=== PATIENT | male | born 2000 | race African-American/Black ===

== ENCOUNTER 2023-09-15 10:29 | Emergency (ER) | payer BC, SELFPAY ==
[2023-09-15 10:46] VITALS: BP 134/78; PULSE 82; RESP 18; TEMP 37.3; O2SAT 99
--- NOTE | 2023-09-15 11:13 | ED.GENADULT ---
HPI - General Adult General Chief complaint: Upper Respiratory Infection Stated complaint: Congestion,Sore Throat,Cough Time Seen by Provider: 09/15/23 11:13 History of Present Illness HPI narrative: 22-year-old male patient arrives to clinic today with reports of runny nose, cough, sore throat without fevers, chills, body aches. Patient denies nausea, vomiting, diarrhea and abdominal pain. Patient states his current symptoms started yesterday. patient reports a history of asthma but currently does not have any chest tightness or wheezing and has not needed his inhaler for at least 2 months. Related Data Home Medications Medication Instructions Recorded Confirmed No Home Medications 09/15/23 09/15/23 Allergies Allergy/AdvReac Type Severity Reaction Status Date / Time Penicillins Allergy Hives Verified 09/15/23 11:03 Review of Systems Review of Systems: CONSTITUTIONAL: Denies fever, chills, or sweats. EYES: Denies visual changes, redness, or discharge. ENT: positive rhinorrhea, denies congestion, positive sore throat, and denies otalgia. CARDIOVASCULAR: Denies chest pain, palpitations, or edema. RESPIRATORY: positive cough that is mostly nonproductive when he does cough something up it is clear phlegm, denies dyspnea. GASTROINTESTINAL: Denies abdominal pain, nausea, vomiting, or diarrhea. GENITOURINARY: Denies dysuria or hematuria. SKIN: Denies rash or itching. MUSCULOSKELETAL: Denies back pain, joint pain, or myalgia. NEUROLOGIC: Denies headache, numbness, or weakness. PSYCHIATRIC: Denies anxiety or depression. Exam Narrative: GENERAL: Well-appearing, well-nourished, and in no acute distress. HEAD: Normocephalic, atraumatic. EYES: PERRLA and EOMI. ENT: Nares clear, no rhinorrhea or epistaxis. Mucous membranes moist. posterior oropharynx without erythema, edema or exudate. bilateral TMs are clear no erythema or foreign bodies the canal. NECK: Supple. No lymphadenopathy CHEST: Clear to auscultation. No respiratory distress. HEART: Regular rate and rhythm. No murmur heard. Normal peripheral pulses. ABDOMEN: Soft, nontender, nondistended, normal active bowel sounds. EXTREMITIES: Normal range of motion. No edema. SKIN: Warm, dry, no rash. NEURO: No focal deficits. Alert and oriented x3. Course Course Level of Care: Express Care Visit Vital Signs Vital signs: Vital Signs Temperature 37.3 C 09/15/23 10:46 Pulse Rate 82 09/15/23 10:46 Respiratory Rate 18 09/15/23 10:46 Blood Pressure 134/78 09/15/23 10:46 Pulse Oximetry 99 09/15/23 10:46 Oxygen Delivery Room Air 09/15/23 10:46 Temperature 37.3 C 09/15/23 10:46 Pulse Rate 82 09/15/23 10:46 Respiratory Rate 18 09/15/23 10:46 Blood Pressure 134/78 09/15/23 10:46 Pulse Oximetry 99 09/15/23 10:46 Oxygen Delivery Room Air 09/15/23 10:46 vital signs have been reviewed. Medical Decision Making MDM Narrative Medical decision making narrative: due to patient's current symptoms, physical exam, and negative strep test will send patient home with supportive measures and education on symptom management. discussed with patient if symptoms persist and follow-up with primary care provider or try [id number] antihistamines such as Zyrtec for possible seasonal allergy symptoms. Differential Diagnosis Differential Diagnosis: Allergic rhinitis, chronic sinusitis, tonsillitis, acute sinusitis, infectious mononucleosis, seasonal influenza, pertussis, diphtheria, meningococcal disease, viral syndrome, viral bronchitis, RSV, COVID-19 Vital Signs Vital Signs: Vital Signs Temperature 37.3 C 09/15/23 10:46 Pulse Rate 82 09/15/23 10:46 Respiratory Rate 18 09/15/23 10:46 Blood Pressure 134/78 09/15/23 10:46 Pulse Oximetry 99 09/15/23 10:46 Oxygen Delivery Room Air 09/15/23 10:46 Temperature 37.3 C 09/15/23 10:46 Pulse Rate 82 09/15/23 10:46 Respiratory Rate 18 09/15/23 10:46
== END 2023-09-15 11:35 | disposition home or self-care (01) ==
PROVIDERS: Emergency Provider Nurse Practitioner Family
DX: R05.9 Cough, unspecified (principal); J02.9 Acute pharyngitis, unspecified
CPT/HCPCS: 87081; 87880; 99203; G0463

== ENCOUNTER 2024-05-23 10:56 | Emergency (ER) | payer OTHER, SELFPAY ==
--- NOTE | ~2024-05-23 | XR_ITS ---
EXAMINATION: XR chest 2V DATE: 05/23/2024 11:24 INDICATION: Productive cough. Shortness of breath. TECHNIQUE: Frontal and lateral views of the chest were obtained. COMPARISON: None. FINDINGS: There are airspace opacities in right upper lobe. No pleural effusion or pneumothorax. The heart size is normal. IMPRESSION: 1. Airspace opacities in right upper lobe, consistent with pneumonia. Reviewed, dictated and finalized at location A. [facility] [employer]
[2024-05-23 11:07] VITALS: BP 135/88; PULSE 88; RESP 18; TEMP 36.7; O2SAT 99
--- NOTE | 2024-05-23 11:08 | ED_ITS ---
HPI - URI/Sore Throat General Chief Complaint: Upper Respiratory Infection Stated Complaint: Cough,Shortness of Breath, Runny Nose, Drainage Time Seen by Provider: 05/23/24 11:04 Source: patient Mode of arrival: ambulatory Limitations: no limitations History of Present Illness HPI Narrative: Juan Carlos is a 24-year-old male patient presenting to the clinic today with complaints of cough, shortness of breath, and nasal congestion/drainage. He reports he has had a productive cough with brown/green phlegm for the past 3 months. Last week he developed sore throat, body aches, chills, and headache however that has resolved. History of asthma. MD elicited complaint: cough, rhinorrhea, nasal congestion and other (Shortness of breath,) Related Data Home Medications Medication Instructions Recorded Confirmed albuterol 90 mcg/actuation aerosol 1 mcg inhalation DIRECTED 05/23/24 05/23/24 inhaler Allergies Allergy/AdvReac Type Severity Reaction Status Date / Time Penicillins Allergy Hives Verified 05/23/24 11:10 Review of Systems Review of Systems: Pertinent positives per HPI. Patient denies any fever, chills, rash, headache, visual changes, dizziness, chest pain, palpitations, nausea, vomiting, diarrhea, constipation, abdominal pain, or any urinary issues. PMFSH Comments At the time of my signature, I reviewed and agree with the nursing past medical, surgical, social, and family history. There is no relevant family history pertinent to the patient complaint. Exam Narrative: General: Well-developed, well nourished, in no apparent distress Head: Normocephalic, atraumatic Eyes: Pupils equally round and reactive to light bilaterally, EOM intact, sclera and conjunctive clear, no discharge, lids normal Ears: TMs intact and clear, ear canals clear, no drainage, grossly hearing normal. Nose: Nares patent, green nasal discharge, moderate inflammation, no sinus tenderness. Mouth: Oral pharynx without lesions or masses, good dentition, MMM. Neck: Supple, trachea midline, no enlargement of anterior or posterior cervical nodes, no thyroid masses or goiter palpable. Cardio: Regular rate and rhythm, s1 and s2 normal, no murmur appreciated. Resp: Diminished in the bases, no rhonchi, rales, wheezing or rubs Course Course Emergency Course: Portions of this record may have been created with voice recognition software. Level of Care: Express Care Visit Vital Signs Vital signs: Vital Signs Temperature 36.7 C 05/23/24 11:07 Pulse Rate 88 05/23/24 11:07 Respiratory Rate 18 05/23/24 11:07 Blood Pressure 135/88 05/23/24 11:07 Pulse Oximetry 99 05/23/24 11:07 Oxygen Delivery Room Air 05/23/24 11:07 Temperature 36.7 C 05/23/24 11:07 Pulse Rate 88 05/23/24 11:07 Respiratory Rate 18 05/23/24 11:07 Blood Pressure 135/88 05/23/24 11:07 Pulse Oximetry 99 05/23/24 11:07 Oxygen Delivery Room Air 05/23/24 11:07 Vital signs reviewed MDM - URI/Sore Throat MDM Narrative Medical decision making narrative: At the time of visit patient is resting comfortably on the exam table. Patient appears to be nontoxic. Diagnostics: Chest x-ray shows right upper lobe pneumonia. Plan: Patient has right upper lobe pneumonia. Prescription for Levaquin and albuterol inhaler was sent to the pharmacy. Supportive measures were discussed with the patient and they voiced understanding discharge instructions and agrees to treatment plan. Return precautions reviewed Differential Diagnosis Differential diagnosis: Likely upper respiratory infection, otitis media, sinusitis, viral infection, bronchitis, influenza, pharyngitis and other (COVID) Imaging Data Radiologist's impression: ITS Impressions Chest X-Ray 05/23/24 11:32 IMPRESSION: 1. Airspace opacities in right upper lobe, consistent with pneumonia. Discharge Plan Discharge Clinical Impression: Right upper lobe pneumonia Qualifiers: Pneumonia type: due to unspecified organism Qualified Code(s): J18.9 - Pneumonia, unspecified organism Patient Disposition: Home, Self-Care Condition: Stable Instructions: Antibiotic Form, Pneumonia (ED) Additional Instructions: Chest x-ray shows right upper lobe pneumonia. Take prescription medications only as prescribed-Levaquin and albuterol inhaler Increase fluids and stay well hydrated Tylenol/motrin for pain/fever Flonase and OTC antihistamines as directed Vicks vapor rub to open sinuses Sinus rinses for congestion Cepacol spray, cough drops, throat lozenges, warm tea with honey/lemon, gargle salt water to soothe throat BRAT diet for diarrhea Clear liquids x 24 hours then advance as tolerated for nausea/vomiting Go to the ED if you develop a worsening in your condition- high fever not controlled by Tylenol or Motrin, dehydration, weakness, lethargy, shortness of breath, or chest pain. Follow up with your PCP in 3-5 days if symptoms persist. Prescriptions: New levofloxacin 750 mg tablet 750 mg PO DAILY 7 Days Qty: 7 0RF albuterol sulfate 90 mcg/actuation HFA aerosol inhaler 2 puff inhalation Q4-6H PRN (Reason: shortness of breath or wheezing) 30 Days Qty: 8.5 0RF No Action albuterol 90 mcg/actuation Aerosol 1 mcg INHALATION DIRECTED Follow-up/Referrals: PHYSICIAN,[employer] [Primary Care Provider] - Time of Disposition: 11:47 Quality NIHSS Nursing Documentation ED NIHSS nursing documentation: reviewed/agree
== END 2024-05-23 11:50 | disposition home or self-care (01) ==
PROVIDERS: Emergency Provider Nurse Practitioner Family
DX: J18.9 Pneumonia, unspecified organism (principal); J45.909 Unspecified asthma, uncomplicated
CPT/HCPCS: 71046; 99213; G0463